=== PATIENT | male | born 1940 | race Caucasian/White ===

== ENCOUNTER 2017-06-09 07:57 | Day surgery (SDC) | payer MEDICARE, OTHER ==
--- NOTE | 2017-06-02 14:38 | HP ---
AMENDED REPORT NOW INCLUDES COSIGNER DESIGNATION - ESIGNED BEFORE ADJUSTMENT PREOPERATIVE HISTORY AND PHYSICAL: DATE OF SURGERY/ADMISSION: 06/09/17 DATE OF OFFICE VISIT: 05/29/17 ATTENDING PHYSICIAN: Dr. Jessica Ruelas.* (DICTATED BY TOMAS SUTTON) PROCEDURE: Right wrist carpal tunnel release. CHIEF COMPLAINT: Bilateral hand numbness and tingling. HISTORY OF PRESENT ILLNESS: Pankaj is a 77-year-old male, who complains of numbness and tingling in bilateral hands, much worse on the right than the left. He has had trouble for 8 months. He says that he has very significant numbness in the right hand that bothers him a lot at night. He feels a lot of weakness in his hand. It bothers him when he tries to drive or ride his trike. He rates the pain as 7/10. He has not had any treatment for this problem. He recently had a nerve conduction study, which showed bilateral carpal tunnel syndrome moderate in degree. He does not take any medication for the problem. He does have significant history for atrial fibrillation for which he uses Pradaxa. He has failed conservative treatments. He has elected to proceed with surgery and the plan is for a right wrist carpal tunnel release by Dr. Ruelas. PAST MEDICAL HISTORY: 1. Hypertension. 2. Atrial fibrillation. 3. Pacemaker. 4. Diabetes type 2. PAST SURGICAL HISTORY: Prostate in 1999 and hernia repair. FAMILY HISTORY: Diabetes, heart disease, hypertension, stroke. SOCIAL HISTORY: He lives with his spouse. 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 He denies tobacco, alcohol or recreational drug use. REVIEW OF SYSTEMS: A complete 14-point review of systems was obtained, other than HPI was positive for hearing changes, chronic neck and back pain, previous fracture, weakness. All other systems are negative and noncontributory. PHYSICAL EXAMINATION GENERAL: Well-developed, well-nourished 77-year-old male in no acute distress. Alert and oriented x3. Appropriate mood and affect. VITAL SIGNS: Pulse is 68, blood pressure is 134/70, respirations 12, pain level is 2/10. HEENT: Head is normocephalic, atraumatic. NECK: Supple with no palpable lymph nodes. LUNGS: Clear to auscultation bilaterally. No wheezes, rales, or rhonchi. CARDIAC: Regular rate and rhythm. S1, S2. No murmurs, rubs, or gallops. MUSCULOSKELETAL: Right upper extremity, he has marked thenar wasting on the right. There is no soft tissue swelling or bruising. He has marked weakness in the thumb with abduction on the right, but not on the left. He can make a fist okay, but he has a lot of arthritic changes in the fingers. He cannot squeeze a tight fist. He has good strength with finger flexion. He has negative Tinel' s at the median nerves bilaterally. IMPRESSION: Right carpal tunnel syndrome. PLAN: He is scheduled to undergo right wrist carpal tunnel release with Dr. Ruelas on 06/09/17. A prescription for tramadol will be sent to the patient's pharmacy for postoperative pain management. He will follow up in the office 10 to 14 days postoperatively. TOMAS SUTTON [id number]/[facility] #: [id number] MARTHA
[~2017-06-09 07:57] MED LIST: Buffered Lidocaine 0.9% SYRIN* 5 ML/SYR SYRINGE INTRADERM ONE
[2017-06-09] MEDS ORDERED: Propofol* 10 MG/ML 20 ML BTL IV PUSH ONE (09:17)
[2017-06-09] MEDS ORDERED: Lidocaine 2% PF * 5 ML VIAL ONE (09:17)
[2017-06-09] MEDS ORDERED: Naloxone* 0.4 MG/ML 1 ML VIAL IV PRN (09:33)
[2017-06-09 10:06] VITALS: BP 152/84
--- NOTE | 2017-06-10 02:36 | OP ---
DATE OF OPERATION: 06/09/17 [facility] DATE OF : 36 SURGEON: Jessica Ruelas MD ASSOCIATE MATERIAL HANDLER: TOMAS Nguyen ANESTHESIA: Local MAC. PRE-OP DIAGNOSIS: Right carpal tunnel syndrome. POST-OP DIAGNOSIS: Right carpal tunnel syndrome. OPERATIVE PROCEDURE: Right carpal tunnel release. ESTIMATED BLOOD LOSS: Zero. TOURNIQUET TIME: About 5 minutes. INDICATIONS FOR PROCEDURE: Pankaj is a 77-year-old male with numbness and tingling in the median nerve distribution of his right hand. He presents for right carpal tunnel release. DESCRIPTION OF PROCEDURE: The patient was brought to the operating room, was given a sedation anesthetic and a local infiltration of 10 cc of 1% plain lidocaine in the palm of his right hand. The skin of his right hand and forearm was prepped and draped in the usual sterile fashion. The hand and forearm were exsanguinated and the tourniquet elevated to 250 mmHg. A longitudinal incision was made in the palm in line with the ring finger. We dissected through the subcutaneous tissue sharply with a knife down to the transverse carpal ligament. The ligament was divided sharply with a knife and then more proximally with the scissors. The nerve was dissected free from the surrounding tissue and there was an area of moderate compression at the mid portion of the ligament. The wound was irrigated and the skin edges were reapproximated with 4-0 nylon suture. The wound was dressed with Xeroform, 4x4 , Webril and an Ronny wrap. The patient tolerated the procedure well and was brought to the recovery room in good condition. [id number]/[facility] #: [id number] [facility]
== END 2017-06-09 10:26 | disposition home or self-care (01) ==
LOC: OREAST 07:57
PROVIDERS: ATTEND Orthopaedic Surgery
DX: G56.01 Carpal tunnel syndrome, right upper limb (principal); E11.9 Type 2 diabetes mellitus without complications; I25.10 Atherosclerotic heart disease of native coronary artery without angina pectoris; I10 Essential (primary) hypertension; I48.91 Unspecified atrial fibrillation; M19.90 Unspecified osteoarthritis, unspecified site; Z79.01 Long term (current) use of anticoagulants; Z85.46 Personal history of malignant neoplasm of prostate
CPT/HCPCS: J2704

== ENCOUNTER 2017-10-17 07:16 | Inpatient (IN) | payer MEDICARE, OTHER ==
--- NOTE | 2017-09-29 10:31 | HP ---
HISTORY AND PHYSICAL: DATE OF ADMISSION: 10/17/17 Coming into [facility] 10/17/17 for right total knee replacement. CHIEF COMPLAINT: Right knee region pain. HISTORY OF PRESENT ILLNESS: The patient has been bothered with his right knee pain over the past months and he has failed nonoperative caring including a cortisone injection. He has noted an increasing valgus deformity of the knee, and knee replacement has been recommended. The patient has a pacemaker. He has atrial fibrillation. He is on Pradaxa. PAST MEDICAL HISTORY: Includes hypertension, diabetes, carpal tunnel syndrome, pacemaker. MEDICATIONS: Other meds include: 1. Toprol 50 mg each day. 2. Amiodarone 200 mg each day. 3. Valsartan/hydrochlorothiazide 160/12.5 mg one a day. 4. Glimepiride 2 mg one-half tablet each day. 5. Omeprazole 40 mg each day. 6. Pradaxa 150 mg p.o. twice a day. 7. Amlodipine 2.5 mg each day. 8. Tylenol. 9. Thyroid replacement 50 mcg each day. ALLERGIES: Allergic to PENICILLIN and COUMADIN. FAMILY HISTORY: Positive for diabetes, cardiac, hypertension and stroke. SOCIAL HISTORY: Lives with his significant other. 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 No smoking. No drinking. 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 Enjoys walking and cycling. He is right-handed. REVIEW OF SYSTEMS: He has not had heart attack. He is not troubled with chest pain. No bleeding disorders. The patient had prostate surgery with Dr. Joyner in 1999 for cancer. He has had some urinary tendency to lose urine since that time and he has had bilateral cataract surgery. PHYSICAL EXAMINATION Current examination, he is well nourished, well developed, slight limp on the right. The right knee has slight valgus malalignment. The cranial nerves are grossly intact. The height 63 inches, weight 136 pounds, blood pressure 128/78 , temp 97.1. The heart is regular with some irregularity and the lungs are clear bilaterally. The abdomen is soft, nontender. There is no organomegaly. The right dorsalis pedis pulse is 2+. The right knee extension minus 5 degrees , flexion 125. There is no effusion. Stable MCL and LCL. Nontender anteriorly , medially, and posteriorly. Some tenderness laterally . The thigh and calf are soft. No swelling bilaterally in his legs, ankles and feet. DIAGNOSTIC STUDIES: The knee radiographs show severe arthritis in the lateral compartment with [id number]. IMPRESSION: Severe arthritis of the right knee in lateral compartment with some valgus malalignment. PLAN: Right total knee replacement. Risks and complications have been reviewed with him and his questions were answered. [id number]/[facility] #: [id number] MTDD
[~2017-10-17 07:16] MED LIST changes: +Acetaminophen TAB* 325 MG PO ONE; +Tranexamic Acid 1,000 MG in NS 0.9% 50 ML* (outpatient use) IV SCH
--- OUTSIDE RECORDS SUMMARY | 2017-10-17 07:21 | XMS REPORT ---
:1940 External Reference #:[id number] Author Organization [facility] Address [address] [place] [address] Phone [phone] Care Team Providers Name Role Phone Gustavo Brownlee MD Primary Care Physician Unavailable Payers Type Date Identification Numbers Payment Provider Subscriber Medicare Primary Policy Number: [id number] Medicare Pankaj Castaneda PayID: [id number] [address] [place] [address] Medigap Part B Expires: 2017 Policy Number: [id number] Medicare Pankaj Castaneda PayID: [id number] [address] [place] [address] Commercial Policy Number: [id number] Lifetime Benefit Solution Pankaj Castaneda Group Number: [id number] [address] [address] [facility]ID[facility] [address] Problems Date Description Provider Status Onset: 02/10/2015 Sinus node dysfunction Brandon Cooper M.D., Active PERRI WHITMORE Onset: 02/10/2015 Paroxysmal atrial fibrillation Brandon Cooper M.D., Active MYRANDA, PERRI Onset: 04/06/2015 Cardiac pacemaker in situ Brandon Cooper M.D., Active MYRANDA, PERRI Onset: 05/24/2017 Bilateral carpal tunnel syndrome Ruben Araujo MD Active Onset: 05/24/2017 Cervical disc disorder Ruben Araujo MD Active Onset: 05/24/2017 Abnormal involuntary movement Ruben Araujo MD Active Onset: 05/24/2017 Diabetic peripheral neuropathy Ruben Araujo MD Active associated with type 2 diabetes mellitus Onset: 06/02/2017 Essential hypertension Brandon Cooper M.D., Active PERRI WHITMORE Onset: 06/02/2017 Thoracic aortic ectasia rBandon Cooper M.D., Active PERRI WHITMORE Onset: 07/27/2017 Carpal tunnel syndrome of left Ruben Araujo MD Active wrist Onset: 07/27/2017 Carpal tunnel syndrome of right Ruben Araujo MD Active wrist Family History Date Family Member(s) Problem(s) Comments General Hypertension Mother had HTN as well as 1 sister and 1 brother General Diabetes Sister and Brother w/ Diabetes General Cerebrovascular Accident (CVA) Father Emphysema Mother Stroke Social History Type Date Description Comments Lives With 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 Cigarette Use Never Smoked Cigarettes ETOH Use Denies alcohol use Smoking Patient has never smoked Recreational Drug Use Denies Drug Use Daily Caffeine Consumes on average 4 cups of regular coffee per day Exercise Type/Frequency Exercises regularly Rides Bicycle, uses stair stepper Allergies, Adverse Reactions, Alerts Date Description Reaction Status Severity Comments 02/03/2015 Penicillins Urticaria active 09/07/2016 Warfarin active urologic and opthalmalogic bleeding Medications Medication Date Status Form Strength Qnty SIG Indications Ordering Provider Toprol XL Active Tablets 50mg 90tab 1 by mouth Z95.0 Brandon ER 24HR s every day eBbe Cooper, PERRI WHITMORE Amiodarone HCL Active Tablets 200mg 90tab 1 by mouth Brandon s every day Bebe Cooper, PERRI WHITMORE Valsartan-Fitzhugh Active Tablets 160-12.5m 1 by mouth Unknown chlorothiazide / g every day Glimepiride Active Tablets 2mg 1/2 by mouth Unknown once daily Omeprazole Active Capsules 40mg [address] every day Pradaxa Active Capsules 150mg 1 by mouth Unknown twice a day Metoprolol Active Tablets 50mg 1 by mouth Unknown Succinate ER /0000 ER 24HR every day Amlodipine Active Tablets 2.5mg 1 by mouth Unknown Besylate every day Acetaminophen Active Tablets 500mg 2 tabs 3x a day as needed Levothyroxine Active Tablets 50mcg 1 by mouth Unknown Sodium /0000 every day Ultracet 06/09 Hx Tablets 37.5-325m 15tab 1 tab by Jessica g s mouth every Ruelas, - 4-6 hours as M.D. 07/16 needed pain Amlodipine 08/16 Hx Tablets 2.5mg 1 by mouth Brandonssuannah Hope Besylate every day Brandon Cooper M.D., 05/28 FAC, FASNC Nexium Hx Capsules 40mg 1 by mouth Unknown /0000 DR every day - 02/07 Aspirin Low Hx Chewtabs 81mg 1 by mouth Unknown Strength /0000 every day - 04/22 Amlodipine Hx Tablets 5mg 1/2 tab by Unknown Besylate /0000 mouth every - day 08/17 Coumadin 00 Hx Tablets 5mg use as Unknown /0000 directed - 02/07 Atenolol Hx Powder 25mg 1/2 tab every Unknown /0000 day - Coumadin Hx Tablets 2mg 1-3 tab by Unknown /0000 mouth as - directed at 02/07 5pm daily /2015 Esomeprazole Hx Capsules 40mg 1 by mouth Unknown Magnesium /0000 DR every other - day 04/05 Famotidine Hx Tablets 20mg take one Unknown /0000 tablet by - mouth every 04/05 other /2015 alternating w/ Esomeprazole Medications Administered in Office Medication Date Status Form Strength Qnty SIG Indications Ordering Provider Depomedrol Administered Injection Dirk Nichol, 40MG 018 M.D. Inj, Administered Injection Brandon Hope Regadenoson, 017 Kenneth, 0.1 MG M.DCassandra, [facility], FASNC Technetium TC Administered Injection Brandon Hope 99M 017 Kenneth TetrofosminBebe, [facility], Per Unit Dose FASALEXX Up To 40 Millicuries Vital Signs Date Vital Result Comment 10/03/2017 Height 64 inches 5'4" Weight 134.25 lb with shoes Heart Rate 62 /min BP Systolic Sitting 112 mmHg Lue reg cuff BP Diastolic Sitting 60 mmHg Lue reg cuff BP Systolic Standing 120 mmHg Lue reg cuff BP Diastolic Standing 78 mmHg Lue reg cuff Respiratory Rate 16 /min BMI (Body Mass Index) 23.0 kg/m2 Ejection Fraction 55-60% date 08/19/16 ECHO 09/27/2017 Height 63.25 inches 5'3.25" Weight 136.00 lb BP Systolic 128 mmHg BP Diastolic 78 mmHg Respiratory Rate 20 /min Body Temperature 97.1 F Pain Level 6 BMI (Body Mass Index) 23.9 kg/m2 08/23/2017 Height 63.25 inches 5'3.25" Weight 137.00 lb BP Systolic 134 mmHg BP Diastolic 64 mmHg Respiratory Rate 20 /min Body Temperature 97.7 F Pain Level 8 BMI (Body Mass Index) 24.1 kg/m2 08/21/2017 Height 63.25 inches 5'3.25" Weight 137.00 lb BP Systolic 126 mmHg BP Diastolic 68 mmHg Respiratory Rate 20 /min Body Temperature 98.4 F Pain Level 8 BMI (Body Mass Index) 24.1 kg/m2 07/27/2017 Height 63.25 inches 5'3.25" Weight 137.00 lb Heart Rate 68 /min BP Systolic 118 mmHg BP Diastolic 78 mmHg BMI (Body Mass Index) 24.1 kg/m2 07/17/2017 Height 63.25 inches 5'3.25" Weight 126.00 lb Heart Rate 64 /min Respiratory Rate 16 /min Pain Level 1 BMI (Body Mass Index) 22.1 kg/m2 06/19/2017 Height 67 inches 5'7" Heart Rate 68 /min BP Systolic 110 mmHg BP Diastolic 68 mmHg Respiratory Rate 16 /min Body Temperature 98.0 F Pain Level 3 06/02/2017 Height 63.25 inches 5'3.25" Weight 134.00 lb Heart Rate 64 /min regular BP Systolic Sitting 120 mmHg LA Large Cuff BP Diastolic Sitting 68 mmHg LA Large Cuff BP Systolic Standing 114 mmHg LA Large Cuff BP Diastolic Standing 64 mmHg LA Large Cuff Respiratory Rate 16 /min Pain Level 5 right knee O2 % BldC Oximetry 94 % BMI (Body Mass Index) 23.5 kg/m2 05/29/2017 Height 63.25 inches 5'3.25" Weight 134.00 lb Heart Rate 68 /min BP Systolic 134 mmHg BP Diastolic 70 mmHg Respiratory Rate 12 /min Body Temperature 97.9 F Pain Level 2 BMI (Body Mass Index) 23.5 kg/m2 05/24/2017 Height 63.25 inches 5'3.25" Weight 132.38 lb Heart Rate 78 /min BP Systolic Sitting 120 mmHg BP Diastolic Sitting 78 mmHg BMI (Body Mass Index) 23.3 kg/m2 09/07/2016 Height 63.25 inches 5'3.25" Weight 134.00 lb with shoes Heart Rate 76 /min BP Systolic Sitting 114 mmHg Rue reg cuff BP Diastolic Sitting 76 mmHg Rue reg cuff BP Systolic Standing 116 mmHg Rue reg cuff BP Diastolic Standing 76 mmHg Rue reg cuff Respiratory Rate 16 /min BMI (Body Mass Index) 23.5 kg/m2 Ejection Fraction 55-60% 08/19/2016-echo 06/08/2016 Height 63.25 inches 5'3.25" Weight 141.00 lb no shoes Heart Rate 68 /min BP Systolic Sitting 144 mmHg Rue reg cuff BP Diastolic Sitting 76 mmHg Rue reg cuff BP Systolic Standing 144 mmHg Rue reg cuff BP Diastolic Standing 80 mmHg Rue reg cuff Respiratory Rate 16 /min BMI (Body Mass Index) 24.8 kg/m2 06/22/2015 Height 63.25 inches 5'3.25" Weight 147.94 lb Heart Rate 35 /min BP Systolic Sitting 142 mmHg Ra reg cuff BP Diastolic Sitting 70 mmHg Ra reg cuff BP Systolic Standing 138 mmHg Ra reg cuff BP Diastolic Standing 78 mmHg Ra reg cuff Respiratory Rate 16 /min BMI (Body Mass Index) 26.0 kg/m2 05/27/2015 Height 63.25 inches 5'3.25" Weight 147.00 lb with shoes Heart Rate 58 /min BP Systolic 142 mmHg Home BP unit BP Diastolic 87 mmHg Home BP unit BP Systolic Sitting 136 mmHg Ra reg cuff BP Diastolic Sitting 84 mmHg Ra reg cuff BP Systolic Standing 142 mmHg Ra reg cuff BP Diastolic Standing 80 mmHg Ra reg cuff BMI (Body Mass Index) 25.8 kg/m2 04/06/2015 Height 63.25 inches 5'3.25" Weight 147.50 lb with out shoes Heart Rate 84 /min BP Systolic 148 mmHg Ra reg cuff BP Diastolic 84 mmHg Ra reg cuff BP Systolic Standing 142 mmHg Ra reg cuff BP Diastolic Standing 88 mmHg Ra reg cuff Respiratory Rate 16 /min BMI (Body Mass Index) 25.9 kg/m2 03/03/2015 Height 63.25 inches 5'3.25" Weight 146.00 lb Heart Rate 70 /min BP Systolic Sitting 150 mmHg left arm, reg cuff BP Diastolic Sitting 88 mmHg left arm, reg cuff BP Systolic Standing 148 mmHg left arm, reg cuff BP Diastolic Standing 88 mmHg left arm, reg cuff Respiratory Rate 20 /min BMI (Body Mass Index) 25.7 kg/m2 02/17/2015 Height 63.25 inches 5'3.25" Weight 145.00 lb Heart Rate 46 /min BP Systolic Sitting 134 mmHg left arm, reg cuff BP Diastolic Sitting 82 mmHg left arm, reg cuff BP Systolic Standing 134 mmHg left arm, reg cuff BP Diastolic Standing 82 mmHg left arm, reg cuff BMI (Body Mass Index) 25.5 kg/m2 02/10/2015 Height 63.25 inches 5'3.25" Weight 146.00 lb w/o shoes Heart Rate 50 /min reg BP Systolic 156 mmHg Lue. reg cuff BP Diastolic 94 mmHg Lue. reg cuff BP Systolic Sitting 156 mmHg Rue, reg cuff BP Diastolic Sitting 90 mmHg Rue, reg cuff BP Systolic Standing 160 mmHg Rue BP Diastolic Standing 86 mmHg Rue Respiratory Rate 18 /min BMI (Body Mass Index) 25.7 kg/m2 Results Test Date Test Result H/L Range Note Laboratory test finding 06/09/2017 Point of Care Glucose 150 mg/dL High 70 -100 1 Vitamin B12 And Folate 05/24/2017 Vitamin B12 542 pg/mL 180-914 2 Serum Folic Acid (Folate) 12.37 ng/mL >3.99 3 Laboratory test finding 05/24/2017 TSH (Thyroid Stim Horm) 3.14 mcIU/mL 0.34-5.60 4 Pre Cath Panel 02/17/2015 Partial Thrombo Time 29.2 seconds 26.0-36.3 5 PTT CBC Auto Diff 02/17/2015 White Blood Count 5.5 10^3/uL 3.5-10.8 Red Blood Count 4.80 10^6/uL 4.0-5.4 Hemoglobin 14.5 g/dL 14.0-18.0 Hematocrit 45 % 42-52 Mean Corpuscular Volume 94 fL 80-94 Mean Corpuscular Hemoglobin 30 pg 27-31 Mean Corpuscular HGB Conc 32 g/dL 31-36 Red Cell Distribution Width 14 % 10.5-15 Platelet Count 248 10^3/uL 150-450 Mean Platelet Volume 10 um3 7.4-10.4 Abs Neutrophils 4.0 10^3/uL 1.5-7.7 Abs Lymphocytes 0.5 10^3/uL Low 1.0-4.8 Abs Monocytes 0.5 10^3/uL 0-0.8 Abs Eosinophils 0.3 10^3/uL 0-0.6 Abs Basophils 0.2 10^3/uL 0-0.2 Abs Nucleated RBC 0.01 10^3/uL Granulocyte % 73.6 % 38-83 Lymphocyte % 8.9 % Low 25-47 Monocyte % 9.2 % High 1-9 Eosinophil % 5.1 % 0-6 Basophil % 3.2 % High 0-2 Nucleated Red Blood Cells % 0.2 Inr/Protime 02/17/2015 Inr 0.97 0.89-1.11 Basic Metabolic Panel 02/17/2015 Sodium 139 mmol/L 133-145 Potassium 4.2 mmol/L 3.5-5.0 Chloride 103 mmol/L 101-111 Co2 Carbon Dioxide 29 mmol/L 22-32 Anion Gap 7 mmol/L 2-11 Glucose 90 mg/dL 70-100 Blood Urea Nitrogen 19 mg/dL 6-24 Creatinine 1.09 mg/dL 0.67-1.17 BUN/Creatinine Ratio 17.4 8-20 Calcium 10.2 mg/dL 8.6-10.3 Egfr Non- 65.6 >60 Egfr 84.4 >60 6 1 Stage Manager: [id number] Normal Range 180 to 914 Indeterminate Range 145 to 180 Deficient Range <145 3 Copy Result to: GUSTAVO BROWNLEE ([id number]) 4 Copy Result to: GUSTAVO BROWNLEE ([id number]) 5 soon 6 Because ethnic data is not always readily available, this report includes an eGFR for both -Americans and non- Americans. The National Kidney Disease Education Program (NKDEP) does not endorse the use of the MDRD equation for patients that are not between the ages of 18 and 70, are , have extremes of body size, muscle mass, or nutritional status, or are non- or non-. According to the National Kidney Foundation, irrespective of diagnosis, the stage of the disease is based on the level of kidney function: Stage Description GFR(mL/min/1.73 m(2)) 1 Kidney damage with normal or decreased GFR 90 2 Kidney damage with mild decrease in GFR 60-89 3 Moderate decrease in GFR 30-59 4 Severe decrease in GFR 15-29 5 Kidney failure <15 (or dialysis) Procedures Date CPT Code Description Status Comment 10/03/2017 71811 EKG Tracing & Interpretation Completed 08/25/2017 40729 Pace Maker Eval W/Iterative Completed Adjment Dual Lead 08/25/2017 91295 Pace Maker Eval W/Iterative Completed Adjment Dual Lead 08/21/2017 40402 Inject/Drain Joint/Bursa Major Completed W/O US 06/09/2017 77116 Carpal Tunnel Release Completed 06/09/2017 54668 Carpal Tunnel Release Completed 06/02/2017 89393 EKG Tracing & Interpretation Completed 03/28/2017 34793 Nerve Conduction 09-10 Studies Completed 03/28/2017 12576 Needle Electromyography Completed Complete, Five Or More Muscles Studied 02/15/2017 50827 Pace Maker Eval W/Iterative Completed Adjment Dual Lead 02/15/2017 67897 Pace Maker Eval W/Iterative Completed Adjment Dual Lead 09/07/2016 42804 EKG Tracing & Interpretation Completed 08/23/2016 70647 Pace Maker Eval W/Iterative Completed Adjment Dual Lead 08/23/2016 08930 Pace Maker Eval W/Iterative Completed Adjment Dual Lead 08/19/2016 12287 ECHO Transthoracic, Real-Time 2D Completed With Doppler And Color Flow 08/17/2016 91991 Stress Test Completed 08/17/2016 92251 Myocardial Perfusion Imaging Completed Tomographic (Spect) Multiple Studies 06/08/2016 97864 EKG Tracing & Interpretation Completed 05/02/2016 Diabetic Retinal Eye Exam Completed Document: 05/02/16 - Consult Ophthalmology-[place] 03/21/2016 30566 Pace Maker Eval W/Iterative Completed Adjment Dual Lead 09/16/2015 06441 Pace Maker Eval W/Iterative Completed Adjment Dual Lead 06/10/2015 58204 Interrogation Device Eval In Completed Person W/DR Analysis,Single,Dual,Mul 04/23/2015 Diabetic Retinal Eye Exam Completed Document: 04/23/15 - Cons Ophthalmology-[place] Document: 04/23/15 - Cons Ophthalmology-[place] 04/06/2015 14322 EKG Tracing & Interpretation Completed 03/24/2015 35551 Pace Maker Eval W/Iterative Completed Adjment Dual Lead 02/25/2015 19786 EKG, Interpretation Only Completed 02/24/2015 82886 EKG, Interpretation Only Completed 02/24/2015 68759 Perm Pacemaker Av Sequential Completed Atrial And Ventricular 02/10/2015 15037 EKG Tracing & Interpretation Completed Encounters Type Date Location Provider CPT E/M Dx Office Visit 08/23/2017 [facility] M.D. 84216 M17.11 3:15p C.M.ACassandra Office Visit 08/21/2017 [facility] M.D. 49125 M17.11 11:00a C.M.A. Office Visit 07/27/2017 [facility] [address] G56.02 3:30p G56.01 E11.42 R25.1 Office Visit 06/02/2017 10:30a [facility] Cooper, 68605 I48.0 Kaitlyn Elderland Bebe, FACC, FASIL I10 I77.810 Z95.0 Z01.810 G56.01 Office Visit 05/29/2017 9:30a [facility] Jessica Ruelas, 11534 G56.01 C.MRuss Spence Office Visit 05/24/2017 11:15a [facility] [address] G56.03 E11.42 M50.90 R25.1 Office Visit 09/07/2016 1:45p [facility] Brandonsusannah Cooper, 19639 I48.0 Printer Slotter Helper Bebe, FACC, FASNC I49.5 Z95.0 Office Visit 06/08/2016 11:00a [facility] Brandon Cooper, 88800 I49.5 Printer Slotter Helper Bebe, FACC, FASNC I48.0 Office Visit 06/22/2015 10:00a [facility] Brandon Cooper, 53062 I49.5 Printer Slotter Helper Bebe, FACC, FASNC Office Visit 05/27/2015 11:00a [facility] Brandon Cooper, 11118 I48.0 Printer Slotter Helper Bebe, FACC, FASNC Office Visit 04/06/2015 10:30a [facility] Brandon Cooper, 11217 I48.0 Printer Slotter Helper Bebe, FACC, FASNC Z95.0 Office Visit 02/17/2015 1:15p [facility] Todd Paredes, 14015 I49.5 [facility] [place]be I48.0 Office Visit 02/10/2015 2:00p [facility] Brandon oCoper, 81673 I49.5 [facility] Bebe, [facility], FASNC I48.0 Plan of Care Future Appointment(s):10/17/2017 9:15 am - TOMAS Rodas at [facility]A.11/15/2017 8:15 am - Santiago Gandara M.D. at [facility].A.10/17/2017 9:15 am - Santiago Gandara M.D. at [facility].A.10/03/2017 - Brandon Cooper M.D., [facility], [id number] Paroxysmal atrial fibrillationComments:As discussed, I feel you may have needed right knee replacement as scheduled with Dr. Gandara 10/17/17.Please stop Pradaxa after your evening dose of Pradaxa on 10/14/17.Follow up:as prior ordered, echo 05/25 with ov post
--- OUTSIDE RECORDS SUMMARY | 2017-10-17 07:21 | XMS REPORT ---
:1940 External Reference #:[id number] Author Organization [facility] Address [address] [place] [address] Phone [phone] Care Team Providers Name Role Phone Gustavo Brownlee MD Primary Care Physician Unavailable Payers Type Date Identification Numbers Payment Provider Subscriber Medicare Primary Policy Number: [id number] Medicare Pankaj Castaneda PayID: [id number] [address] [place] [address] Medigap Part B Expires: 2017 Policy Number: [id number] Medicare Pankaj Castaneda PayID: [id number] [address] [place] [address] Commercial Policy Number: [id number] Lifetime Benefit Solution Pankaj Castaneda Group Number: [id number] [address] [address] PayID: [id number] Villalpando [address] Problems Date Description Provider Status Onset: 02/10/2015 [...] PERRI WHITMORE Onset: 06/02/2017 Thoracic aortic ectasia Brandon Cooper M.D., Active PERRI WHITMORE Onset: 07/27/2017 [...] Description Comments 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 Cigarette Use Never Smoked Cigarettes ETOH Use [...] Z95.0 Brandon ER 24HR s every day Bebe Cooper, PERRI WHITMORE Amiodarone HCL Active Tablets 200mg 90tab 1 by mouth Brandon s every day Bebe Cooper, PERRI WHITMORE Valsartan-[place] Active Tablets 160-12.5m 1 by mouth Unknown [...] mouth every Ruelas, - 4-6 hours as M.DCassandra 07/16 needed pain Amlodipine 08/16 Hx Tablets 2.5mg 1 by mouth Brandonsusannah Hope Besylate every day Brandon Cooper M.D., 05/28 [facility], FASNC Nexium Hx Capsules 40mg 1 by [...] /0000 tablet by - mouth every 04/05 /2015 alternating w/ Esomeprazole Medications Administered in Office Medication Date Status Form Strength Qnty SIG Indications Ordering Provider Depomedrol Administered Injection Dirk Nichol, 40MG 018 M.D. 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: [id number] Normal Range 180 to 914 Indeterminate Range 145 to 180 Deficient Range <145 3 Copy Result to: GUSTAVO BROWNLEE ([id number]) 4 Copy Result to: GUSTAVO BROWNLEE ([id number]) 5 soon 6 Because ethnic data is [...] Procedures Date CPT Code Description Status Comment 08/25/2017 77212 Pace Maker Eval W/Iterative Completed Adjment Dual Lead 08/25/2017 88195 Pace Maker Eval W/Iterative Completed Adjment Dual Lead 08/21/2017 12361 Inject/Drain Joint/Bursa Major Completed W/O US 06/09/2017 26261 Carpal Tunnel Release Completed 06/09/2017 56801 Carpal Tunnel Release Completed 06/02/2017 21928 EKG Tracing & Interpretation Completed 03/28/2017 78955 Nerve Conduction 09-10 Studies Completed 03/28/2017 32356 Needle Electromyography Completed Complete, Five Or More Muscles Studied 02/15/2017 72975 Pace Maker Eval W/Iterative Completed Adjment Dual Lead 02/15/2017 49168 Pace Maker Eval W/Iterative Completed Adjment Dual Lead 09/07/2016 14147 EKG Tracing & Interpretation Completed 08/23/2016 57478 Pace Maker Eval W/Iterative Completed Adjment Dual Lead 08/23/2016 56539 Pace Maker Eval W/Iterative Completed Adjment Dual Lead 08/19/2016 94495 ECHO Transthoracic, Real-Time 2D Completed With Doppler And Color Flow 08/17/2016 50077 Myocardial Perfusion Imaging Completed Tomographic (Spect) Multiple Studies 08/17/2016 33047 Stress Test Completed 06/08/2016 01085 EKG Tracing & Interpretation Completed 05/02/2016 Diabetic Retinal Eye Exam Completed Document: 05/02/16 - Consult Ophthalmology-[place] 03/21/2016 33079 Pace Maker Eval W/Iterative Completed Adjment Dual Lead 09/16/2015 66533 Pace Maker Eval W/Iterative Completed Adjment Dual Lead 06/10/2015 37523 Interrogation Device Eval In Completed Person W/DR Analysis,Single,Dual,Mul 04/23/2015 Diabetic Retinal Eye Exam Completed Document: 04/23/15 - Cons Ophthalmology-[place] Document: 04/23/15 - Cons Ophthalmology-[place] 04/06/2015 30874 EKG Tracing & Interpretation Completed 03/24/2015 85607 Pace Maker Eval W/Iterative Completed Adjment Dual Lead 02/25/2015 33190 EKG, Interpretation Only Completed 02/24/2015 19728 EKG, Interpretation Only Completed 02/24/2015 25609 Perm Pacemaker Av Sequential Completed Atrial And Ventricular 02/10/2015 58282 EKG Tracing & Interpretation Completed Encounters Type Date Location Provider CPT E/M Dx Office Visit 08/23/2017 [facility] M.D. 76482 M17.11 3:15p C.M.A. Office Visit 08/21/2017 [facility] M.D. 60671 M17.11 11:00a C.M.A. Office Visit 07/27/2017 [place] [address] G56.02 3:30p G56.01 E11.42 R25.1 Office Visit 06/02/2017 10:30a [facility] Brandon Cooper, 40324 I48.0 Emergency Veterinary Technician NITHYA Stanley Bebe, FACC, FASNC I10 I77.810 Z95.0 Z01.810 G56.01 Office Visit 05/29/2017 9:30a [facility] Jessica Ruelas, 53476 G56.01 C.M.ACassandra Spence Office Visit 05/24/2017 11:15a [place] [address] G56.03 E11.42 M50.90 R25.1 Office Visit 09/07/2016 1:45p [facility] Brandon Cooper, 64207 I48.0 Emergency Veterinary Technician M.D., FACC, FASNC I49.5 Z95.0 Office Visit 06/08/2016 11:00a [facility] Brandon Cooper, 40538 I49.5 Emergency Veterinary Technician M.D., FACC, FASNC I48.0 Office Visit 06/22/2015 10:00a [facility] Brandon Hope Cooper, 98058 I49.5 Emergency Veterinary Technician M.D., FACC, FASNC Office Visit 05/27/2015 11:00a [facility] Brandon Cooper, 78976 I48.0 Emergency Veterinary Technician M.D., FACC, FASNC Office Visit 04/06/2015 10:30a [facility] Brandon Cooper, 89483 I48.0 Emergency Veterinary Technician M.D., FACC, FASNC Z95.0 Office Visit 02/17/2015 1:15p [facility] Todd Paredes, 45376 I49.5 Emergency Veterinary Technician [facility] M[place] I48.0 Office Visit 02/10/2015 2:00p [facility] Hope Cooper, 23192 I49.5 Emergency Veterinary Technician M.DCassandra, FACC, FASNC I48.0 Plan of Care Future Appointment(s):11/15/2017 8:15 am - Santiago Gandara M.D. at [facility]10/03/2017 1:15 pm - Branodn Cooper M.D., [facility], [facility] at [facility]10/17/2017 9:15 am - Santiago Gandara M.D. at [facility] .[facility]11/17/2017 7:30 am - Jessica Ruelas M.D. at [facility]11/27/2017 9:00 am - Jessica Ruelas M.D. at [facility]10/30/2017 8:45 am - Jessica Ruelas M.D. at [facility]09/27/2017 - Santiago Gandara M.D.M17.11 Unilateral primary osteoarthritis, right kneeFollow up:Follow up: Right total knee 10/17 Stay active Stop the Pradaxa on the day recommended by Dr. Cooper
[2017-10-17] MEDS ORDERED: Acetaminophen TAB* 325 MG ONE (07:38)
[2017-10-17] MEDS ORDERED: Clindamycin 900 MG/D5W BAG(*) 900 MG/50 ML BAG IVPB ONE (07:38)
[2017-10-17] MEDS ORDERED: Midazolam* 1 MG/ML 2 ML VIAL (2 MG) ONE (08:45)
[2017-10-17] MEDS ORDERED: fentaNYL* 50 MCG/ML 2 ML VIAL (100 MCG VIAL) ONE ×3 (08:45→13:01)
[2017-10-17] MEDS ORDERED: Rocuronium* 10 MG/ML VIAL ONE (09:48)
[2017-10-17] MEDS ORDERED: EPHEDrine (Pressors)* 50 MG/ML VIAL ONE (10:00)
[2017-10-17] MEDS ORDERED: Lidocaine 2% PF * 5 ML VIAL ONE (10:05)
[2017-10-17] MEDS ORDERED: ROPIVACAINE 5 MG/ML 30 ML BTL (0.5%) ONE (10:05)
[2017-10-17] MEDS ORDERED: Dexamethasone IV* 4 MG/ML 1 ML (4 MG) ONE (10:06)
[2017-10-17] MEDS ORDERED: Propofol* 10 MG/ML 20 ML BTL IV PUSH ONE (10:06)
[2017-10-17] MEDS ORDERED: Famotidine IV* 10 MG/ML 2 ML (20 mg) ONE (10:06)
[2017-10-17] MEDS ORDERED: Bupivacaine 0.25% SDV PF* 10 ML VIAL INJ ONE (10:17)
[2017-10-17] MEDS ORDERED: PROCHLORPERAZINE INJ 5 MG/ML 2 ML VIAL IV PRN (10:23)
[2017-10-17] MEDS ORDERED: DiMENhydriNATE IV* 50 MG/ML VIAL IV PUSH PRN (10:23)
[2017-10-17] MEDS ORDERED: diPHENhydraMINE IV* 50 MG/ML 1 ml VIAL (BENADRYL) IV PRN ×2 (10:23→12:41)
[2017-10-17] MEDS ORDERED: HYDROmorphone INJ1* 1 MG/ML SYRINGE IV PRN (10:23)
[2017-10-17] MEDS ORDERED: Naloxone* 0.4 MG/ML 1 ML VIAL IV PRN (10:23)
[2017-10-17] MEDS ORDERED: fentaNYL* 50 MCG/ML 2 ML VIAL (100 MCG VIAL) IV PRN (10:23)
[2017-10-17] MEDS ORDERED: Bupivacaine 0.25% W/EPI* 10 ML SDV ONE (11:50)
[2017-10-17] MEDS ORDERED: Ketorolac INJ* 30 MG/ML 1 ML VIAL ONE (12:07)
[2017-10-17] MEDS ORDERED: Ondansetron ODT TAB* 4 MG PO PRN (12:41)
[2017-10-17] MEDS ORDERED: Magnesium Hydroxide LIQ* 30 ML UDC PO PRN (12:41)
[2017-10-17] MEDS ORDERED: Cyclobenzaprine TAB* 10 MG PO PRN (12:41)
[2017-10-17] MEDS ORDERED: Morphine VIAL* 4 MG/ML VIAL (1 ml vial) IV PRN (12:41)
[2017-10-17] MEDS ORDERED: Ondansetron INJ* 2 MG/ML VIAL IV PRN (12:41)
[2017-10-17] MEDS ORDERED: traMADol TAB* 50 MG PO PRN (12:41)
[2017-10-17] MEDS ORDERED: Morphine INJ* 2 MG/ML 1 ML SYRINGE (TWO MG - NEW SYRINGE VERSION) IV PRN (12:41)
[2017-10-17] MEDS ORDERED: diPHENhydraMINE PO* 25 MG PO PRN (12:41)
--- NOTE | 2017-10-17 13:14 | RAD ---
HISTORY: sp right total knee arthroplasty COMPARISONS: August 21, 2017 VIEWS: 2 , Frontal and lateral views of the right knee FINDINGS: BONE DENSITY: Normal. BONES: The patient is status post right knee arthroplasty. There is no hardware failure or osteolysis. JOINTS: The patient is status post right knee arthroplasty. ALIGNMENT: There is no dislocation. SOFT TISSUES: There is postsurgical change to the soft tissues. OTHER FINDINGS: None. IMPRESSION: STATUS POST RIGHT KNEE ARTHROPLASTY.
[2017-10-17] MEDS ORDERED: Dextrose 50% Syringe 50 ML* 25 GM/50 ML SYRINGE IV PUSH PRN (15:07)
[2017-10-17] MEDS: oxyCODONE TAB* 5 MG TAB PO PRN (15:53)
[2017-10-17] MEDS: Acetaminophen TAB* 325 MG PO SCH ×2 (15:54→21:01)
[2017-10-17] MEDS: Clindamycin 600 MG IVPREMIX(* 600 MG/50 ML SDV IV SCH (17:11)
[2017-10-17] MEDS: Insulin LISPRO* 1 UNITS UNIT SUBCUT SCH ×2 (17:52→21:02)
--- NOTE | 2017-10-17 20:28 | CONS ---
CC: Dr. Luis Hutchins * CONSULTATION REPORT: DATE OF CONSULT: REQUESTING PHYSICIAN: Dr. Santiago Gandara. PRIMARY CARE PROVIDER: Dr. Luis Hutchins. HISTORY OF PRESENT ILLNESS: Mr. Castaneda is a 77-year-old gentleman with a past medical history of type 2 diabetes, hypertension, hypothyroidism, atrial fibrillation, GERD, who presented to Dr. Gandara's office with complaints of right knee pain that did not respond to conservative measures and he was noted to have an increasing valgus deformity of the knee and knee replacement has been recommended. The patient underwent a right total knee arthroplasty with an EBL of 250 mL. During my evaluation, the patient states that he is feeling well. Denies any pain and states that he is happy that he is already able to move his leg. PAST MEDICAL HISTORY: 1. Hypertension. 2. Type 2 diabetes. 3. GERD. 4. Atrial fibrillation. 5. Status post pacemaker. 6. Hypothyroidism. 7. COPD. 8. GERD. 9. Carpal tunnel syndrome. MEDICATION LIST: 1. Acetaminophen 650 mg p.o. q.6 hours p.r.n. pain or fever. 2. Amiodarone 200 mg p.o. daily. 3. Amlodipine 2.5 mg p.o. daily. 4. Glimepiride 1 mg p.o. daily. 5. Levothyroxine 50 mcg p.o. daily. 6. Metoprolol succinate 50 mg p.o. daily. 7. Omeprazole 40 mg p.o. daily. 8. Pradaxa 150 mg p.o. b.i.d. 9. Valsartan/hydrochlorothiazide 160/12.5 one tablet p.o. q.a.m. ALLERGIES: To PENICILLIN, the patient had a rash and to WARFARIN. FAMILY HISTORY: Positive for diabetes, heart disease, hypertension, and CVA. SOCIAL HISTORY: The patient has COPD secondary to secondhand smoking, but he never smoked. No history of alcohol or drug use. 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 REVIEW OF SYSTEMS: A 14-point review of systems was performed and all the pertinent negative and positive findings are in the HPI. PHYSICAL EXAM: Vital Signs: Temperature 96.6, heart rate is 65, respiratory rate is 20, oxygen saturation 99% on room air, blood pressure is 144/75. General: The patient is a pleasant, elderly gentleman, sitting up in the bed, in no acute distress. HEENT: Pupils are equal. Moist mucous membranes. CVS: Normal S1, S2. Regular rate and rhythm. Chest: Breath sounds present bilaterally with no added sounds. Abdomen is soft. Bowel sounds present. Extremities: No edema. The patient has a Cryo unit to his right knee. Good capillary refill and normal sensation to both lower extremities. Neuro: He is alert and oriented x3. Able to move all 4 extremities. ASSESSMENT AND PLAN: Mr. Castaneda is a 77-year-old male with a past medical history of hypothyroidism; hypertension; type 2 diabetes; atrial fibrillation, status post pacemaker; chronic obstructive pulmonary disease; carpal tunnel, who presented for an elective right total knee replacement. 1. Right total knee replacement. Management as per Orthopedics. 2. Type 2 diabetes. At this point, we are going to hold his glimepiride. We are going to monitor his fingersticks and he will have a lispro sliding scale coverage. 3. Atrial fibrillation. The patient sounds regular on physical examination. An EKG done at Dr. Hutchins' office on 09/29/17 showed an A-paced rhythm. We are going to continue amiodarone and resume his Pradaxa as soon as he is cleared by Orthopedics, hopefully in the next 24 hours. 4. Hypertension. We will continue amlodipine, valsartan, and hydrochlorothiazide. 5. DVT prophylaxis will be with Pradaxa. 6. Code status is full. TIME SPENT: Approximately 45 minutes was spent with the patient's interview, medical records review, physical examination to complete this consultation, more than half of this time was spent [id number] with the patient and coordination of care. [id number]/[facility] #: [id number] MARTHA
[2017-10-17] MEDS: Docusate CAP* 100 MG PO SCH (21:02)
[2017-10-17] MEDS: Magnesium Hydroxide LIQ* 30 ML UDC PO SCH (21:03)
[2017-10-18] MEDS: Clindamycin 600 MG IVPREMIX(* 600 MG/50 ML SDV IV SCH ×2 (01:41→09:27)
--- NOTE | 2017-10-18 02:26 | OP ---
DATE OF OPERATION: 10/17/17 - ROOM #348 DATE OF : 36 SURGEON: Santiago Gandara MD STEAMSHIP AGENT: TOMAS Rodas, [employer] assistant manager. ANESTHESIOLOGIST: Dr. José Miguel Sharma. ANESTHESIA: Right thigh adductor canal block, ropivacaine, and endotracheal tube general. PRE-OP DIAGNOSIS: Severe arthritis to the right knee especially in the lateral compartment with valgus malalignment, [id number]. POST-OP DIAGNOSIS: Severe arthritis to the right knee especially in the lateral compartment with valgus malalignment, [id number]. OPERATIVE PROCEDURE: Right total knee replacement. COMPONENTS UTILIZED: Darleen Persona knee. All components cemented, a size 6 femur,a 32 patella, a size E tibia with an extension and a 10-mm articular surface. COMPLICATIONS: There were no complications. BLOOD LOSS: 200 mL. DRAINS: Two drains, right knee at the end of the case. REPLACEMENT: Crystalloid fluids. OPERATIVE INDICATIONS: Severe arthritis to the right knee with the valgus malalignment. The patient is [id number], he has been severely disabled. DESCRIPTION OF PROCEDURE: The patient was brought to the operating room and placed on the operating room table in the supine position, after the adductor canal block had been done in the holding area by Dr. Sharma. The general anesthetic was administered, endotracheal tube was inserted. A Joel catheter was inserted. The right proximal thigh was wrapped with a tourniquet. The right knee was noted to have a slight flexion contracture and the medial collateral ligament stable. The right leg was prepped from the tourniquet to the tips of the toes after it had been given a preliminary chlorhexidine prep. After prepping, draping and sealing off, we did our universal protocol time-out confirming Pankaj Vancise, and a plan for right total knee replacement, we all agreed and we proceeded. The surgical care was done with the patient supine Trendelenburg-type of position. The right foot was placed on a padded foot piece and the surgical care was done with hip and knee acutely flexed for most of the case. The tourniquet was not utilized until the clean up and cementing phase of the case. The skin incision went from the 2 fingerbreadths proximal to the superior pole of the patella to the medial aspect of the tibial tubercle. The skin and subcu were divided the prepatellar bursa was traversed. The prepatellar bursa had a scary tissue and extra strands of bursal tissue and these were excised on the course of the surgical care. The knee was entered medial parapatellar. The knee had clear straw colored synovial fluid. On the tibia, the anteromedial soft tissues were divided down to the bone going medially, we kept subperiosteally going around to the deep MCL and under the posteromedial corner of the knee. Going laterally, the patellar tendon was up lifted on its medial insertion slightly. The patella was made so that it could be everted. The remains of the anterior horn medial meniscus were carefully excised. The tibia was made so that could be subluxated forward from under the femur somewhat. The lateral femoral condyle had bone and cartilage loss. The lateral tibial plateau bone and cartilage loss was complete eburnation of bone and some scooping out of the lateral plateau more posteriorly. The ACL and PCL were carefully excised, they were uplifted from their femoral origins and once the PCL was uplifted and the tibia could be subluxated forward from under the femur and the PCL were carefully excised. Great care was taken while working posteriorly. The lateral meniscal anterior horn was excised, care was taken to achieve hemostasis and the periphery of the lateral meniscus in the region of the lateral geniculate. The distal anterior femur was exposed subperiosteally for referencing and measuring and peripatellar synovectomy was completed. The proximal tibial cut was made first. Our goal here was to have a tibial surface that would be perpendicular to the long axis to the tibia removing 5 to 6 mm medially and a little less laterally. We wanted this surface also to have a slight posterior slope. Next, a distal femoral cutting guide was applied after opening the femoral canal, we suctioned the femoral intramedullary to the discourage any tendency for embolization. The femoral cutting guide was applied with 6 degrees of valgus on 1 for this small flexion contracture of the right knee. The distal femoral cut was completed and the extension gap allowed nice fit of a 10-mm spacer block. The femur was measured for a size 6. The femur was finished anteriorly, posteriorly, and chamfering for size 6. We then finished removal of the posterior horn lateral meniscus, medial meniscus, and the PCL and the flexion gap was also very satisfactory with a 10-mm block. The femur was completed with the intercondylar cut outs and the tibia was then completed for a size E. The femoral canal was cleaned x6 with saline, suctioned empty, and bone plug was inserted. The knee was then assembled with a trial components on size E tibia, 10 articular surface and 6 femur with full knee extension, stable ligaments in extension and stable ligaments in 90 degrees of flexion. The patella was cut flat. A 32 was chosen, 3 drill holes were made and these were undercut. A lateral release was not necessary. The knee had nice range of movement with the patellar component placed full extension, flexion to almost heel buttock distance. The leg was exsanguinated. The tourniquet elevated to 275. The final components were then checked and opened. The knee was then cleaned in extension with pulsed saline irrigation. The knee was then flexed, retractors were put into position and all bony surfaces were cleaned with pulsed saline in flexion and all surfaces were cleaned, dried, and laps inserted for drying all the bony surfaces. The cement was mixed and the components were cemented into position, patella followed by tibia, followed by femur, each was impacted. Excess cement was removed and the knee was articulated and extended during the final hardening. The tourniquet was deflated. The pericapsular tissues were infiltrated with Marcaine 0.25% mixed with Xylocaine with epinephrine, 30 mL of this mixture and then careful hemostasis was achieved during closure and we irrigated several times with saline during closure of the quadriceps. Tendon reapproximated with interrupted #1 Vicryl sutures in [id number] fashion down to the medial retinaculum and then we used 0 Vicryl more distally. The deep bursa and subcu 0 Vicryl and then 3-0 Vicryl on the superficial subcu, and mary jo on the skin. Two drains were brought out through superolateral, suprapatellar pouch and the skin was closed with mary jo after washing and drying. We then covered with Betadine soaked release, sterile gauze, and the drains were dressed the same way, then sterile Webril, cryotherapy cuff, ABD pads, further Webril, and a 6-inch Ronny bandage loosely applied. The patient was returned to the recovery room in stable and satisfactory condition having tolerated the procedure very well. [id number]/[facility] #: [id number] [facility]OSPITALE[facility]
[2017-10-18] MEDS: Acetaminophen TAB* 325 MG PO SCH ×3 (06:02→20:05)
[2017-10-18] MEDS: Levothyroxine TAB* 50 MCG TAB PO SCH (06:03)
[2017-10-18] MEDS: oxyCODONE TAB* 5 MG TAB PO PRN ×2 (06:03→12:10)
[2017-10-18 06:07] LABS: Hematocrit 32 % (42-52); Hemoglobin 11.1 g/dl (14.0-18.0); Mean Platelet Volume 8.7 um3 (7.4-10.4); Platelet Count 173 10^3/ul (150-450)
[2017-10-18 06:25] LABS: EGFR Non-African American 85.8 (>60)
[2017-10-18] MEDS: Omeprazole CAP* 20 MG PO SCH (07:15)
--- NOTE | 2017-10-18 08:10 | PN ---
Progress Note - Progress Note Date of Service: 10/18/17 Note: POD #1 Awake, alert, cooperative, breathing easily. Xray post op right knee all satisfactory. Intake 3843, output 2250. 2 drains removed right knee, the dressing is dry. Right PT pulse is 2 plus. Ankle moving up and down actively. Exercises done right hip and knee. H/H 11.1/32%, lytes are normal, glucose 155. Imp: Stable. Pradaxa restarting. Acute blood loss anemia. Plans: Continue to mobilize with walker and exercises right knee and leg.
[2017-10-18] MEDS: Insulin LISPRO* 1 UNITS UNIT SUBCUT SCH ×4 (08:13→21:11)
[2017-10-18] MEDS: Magnesium Hydroxide LIQ* 30 ML UDC PO SCH ×2 (08:52→20:06)
[2017-10-18] MEDS: Amiodarone TAB* 200 MG PO SCH (08:52)
[2017-10-18] MEDS: Docusate CAP* 100 MG PO SCH ×2 (08:52→20:05)
[2017-10-18] MEDS ORDERED: amLODIPine TAB* 5 MG PO SCH ×2 (09:00→09:09)
[2017-10-18] MEDS ORDERED: Pneumococcal *Vac Polyvalent 0.5 ML VIAL IM ONE (09:00)
[2017-10-18] MEDS ORDERED: Glimepiride (NF) 2 MG TAB PO SCH (09:00)
[2017-10-18] MEDS ORDERED: Hydrochlorothiazide TAB* 25 MG PO SCH ×2 (09:00→09:09)
[2017-10-18] MEDS ORDERED: Metoprolol Succinate XL TAB* 50 MG PO SCH ×2 (09:00→09:09)
[2017-10-18] MEDS ORDERED: Valsartan TAB* 160 MG PO SCH ×2 (09:00→09:09)
--- NOTE | 2017-10-18 11:02 | PN ---
Subjective Date of Service: 10/18/17 Interval History: HOSPITALIST PROGRESS NOTE Patient seen and examined at bedside. Care reviewed and d/w Nicholas Chavira RN. He feels well today. Knee pain is controlled, was able to ambulate with PT. Had 1 episode of N/V last night, but this is now resolved, tolerating diet well. Denies chest pain, palpitations, or dyspnea. Family History: Unchanged from Admission Social History: Unchanged from Admission Past Medical History: Unchanged from Admission Objective Active Medications: Acetaminophen (Tylenol Tab*) 975 mg PO Q8H [facility] Last Admin: 10/18/17 06:02 Dose: 975 mg Amiodarone HCl (Cordarone Tab*) 200 mg PO QAM [facility] Last Admin: 10/18/17 08:52 Dose: 200 mg Amlodipine Besylate (Norvasc Tab*) 2.5 mg PO QAM [facility] Cyclobenzaprine HCl (Flexeril Tab*) 5 mg PO TID PRN PRN Reason: SPASMS Dabigatran (Pradaxa Cap(Nf)) 150 mg PO Q12H [facility] Dextrose (D50w Syringe 50 Ml*) 12.5 gm IV PUSH .FOR FS < 60 - SS PRN PRN Reason: FS < 60 Diphenhydramine HCl (Benadryl Iv*) 25 mg IV Q6H PRN PRN Reason: itching Diphenhydramine HCl (Benadryl Po*) 25 mg PO Q6H PRN PRN Reason: itching Docusate Sodium (Colace Cap*) 100 mg PO BID [facility] Last Admin: 10/18/17 08:52 Dose: 100 mg Hydrochlorothiazide (Hydrodiuril Tab*) 12.5 mg PO DAILY [facility] Lactated Ringer's (Lactated Ringers 1000 Ml Bag*) 1,000 mls @ 100 mls/hr IV PER RATE [facility] Last Admin: 10/18/17 01:39 Dose: 100 mls/hr Insulin Human Lispro (Humalog*) 0 units SUBCUT ACHS [facility]; Protocol Last Admin: 10/18/17 08:13 Dose: 1 unit Levothyroxine Sodium (Synthroid Tab*) 50 mcg PO DAILY@0600 [facility] Last Admin: 10/18/17 06:03 Dose: 50 mcg Magnesium Hydroxide (Milk Of Magnesia Liq*) 30 ml PO BID [facility] Last Admin: 10/18/17 08:52 Dose: 30 ml Magnesium Hydroxide (Milk Of Magnesia Liq*) 30 ml PO Q6H PRN PRN Reason: constipation Metoprolol Succinate (Toprol Xl Tab*) 50 mg PO QAM [facility] Morphine Sulfate (Morphine Inj ((Syringe))*) 2 mg IV Q2H PRN PRN Reason: PAIN - BREAKTHROUGH Morphine Sulfate (Morphine Vial*) 4 mg IV Q2H PRN PRN Reason: PAIN - UNRELIEVED Omeprazole (Prilosec Cap*) 40 mg PO DAILY@0730 [facility] Last Admin: 10/18/17 07:15 Dose: 40 mg Ondansetron HCl (Zofran Inj*) 4 mg IV Q6H PRN PRN Reason: nausea Ondansetron HCl (Zofran Odt Tab*) 4 mg PO Q6H PRN PRN Reason: NAUSEA Last Admin: 10/17/17 23:44 Dose: 4 mg Oxycodone HCl (Roxycodone Tab*) 10 mg PO Q4H PRN PRN Reason: PAIN - SEVERE Last Admin: 10/18/17 06:03 Dose: 10 mg Tramadol HCl (Ultram*) 50 mg PO Q6H PRN PRN Reason: PAIN - MODERATE Valsartan (Diovan Tab*) [facility] Vital Signs - 8 hr 10/18/17 10/18/17 10/18/17 03:24 06:03 07:34 Temperature 98.6 F 98.3 F Pulse Rate 61 62 Respiratory 16 16 17 Rate Blood Pressure 133/71 116/55 (mmHg) O2 Sat by Pulse 97 100 Oximetry 10/18/17 10/18/17 10/18/17 08:00 08:49 08:56 Temperature Pulse Rate 60 Respiratory 16 18 Rate Blood Pressure 109/47 (mmHg) O2 Sat by Pulse 100 Oximetry Oxygen Devices in Use Now: None Appearance: Pleasant gentleman sitting up in a chair in NAD. Eyes: No Scleral Icterus Ears/Nose/Mouth/Throat: Mucous Membranes Moist Neck: Trachea Midline Respiratory: Symmetrical Chest Expansion and Respiratory Effort, Clear to Auscultation Cardiovascular: RRR - Normal S1 and S2 Extremities: - - CD to righ knee, good capillary refill, sensation intact. Right shoulder deformity with old surgical scar Neurological: Alert and Oriented x 3, NL Muscle Strength and Tone Result Diagrams: 10/18/17 05:57 10/18/17 05:57 Assess/Plan/Problems-Billing Assessment: Mr Catsaneda is a 77yo M with PMH of HTN, type 2 DM, GERD, Afib, s/p pacer, hypothyroidism, COPD, GERD, CTS, admitted for elective right TKA. - Patient Problems (1) Status post total right knee replacement Comment: - Management as per Ortho. (2) Type 2 diabetes mellitus Comment: - Resume glimepiride and continue Lispro SS. (3) HTN (hypertension) Comment: - BP on the lower side - continue Amlodipine and hold Valsartan/HCTZ for now. (4) Afib Comment: - Continue Amiodarone and resume Pradaxa. (5) DVT prophylaxis Comment: - Pradaxa. (6) Full code status Status and Disposition: Inpatient. Hospitalist service will continue to follow.
[2017-10-18] MEDS: CMC:Glimepiride (NF) 2 MG TAB PO SCH (12:09)
[2017-10-18] MEDS: CMCS: Dabigatran CAP(NF) 150 MG CAP PO SCH ×2 (12:09→23:54)
[2017-10-19] MEDS: Levothyroxine TAB* 50 MCG TAB PO SCH (05:27)
[2017-10-19] MEDS: Acetaminophen TAB* 325 MG PO SCH (05:28)
[2017-10-19 05:48] LABS: Hematocrit 29 % (42-52); Hemoglobin 10.1 g/dl (14.0-18.0); Mean Platelet Volume 9.1 um3 (7.4-10.4); Platelet Count 150 10^3/ul (150-450)
[2017-10-19] MEDS: Insulin LISPRO* 1 UNITS UNIT SUBCUT SCH (07:39)
[2017-10-19 07:40] VITALS: BP 154/76
[2017-10-19] MEDS: Omeprazole CAP* 20 MG PO SCH (07:43)
--- NOTE | 2017-10-19 08:16 | PN ---
Progress Note - Progress Note Date of Service: 10/19/17 Note: POD #2 Awake , alert, breathing easily. He is OOB to chair and not too distressed with the right knee. Hct is 29%. Temp 98.7. He can actively extend and flex the right knee and minimal swelling of the right ankle. Stable. OK for discharge if he remains stable and he can have a dressing change prior to going home.
[2017-10-19] MEDS: Amiodarone TAB* 200 MG PO SCH (08:37)
[2017-10-19] MEDS: Docusate CAP* 100 MG PO SCH (08:37)
[2017-10-19] MEDS: Magnesium Hydroxide LIQ* 30 ML UDC PO SCH (08:40)
[2017-10-19] MEDS ORDERED: Valsartan TAB* 160 MG PO SCH (09:00)
[2017-10-19] MEDS: CMC:Glimepiride (NF) 2 MG TAB PO SCH (09:30)
[2017-10-19] MEDS: CMCS: Dabigatran CAP(NF) 150 MG CAP PO SCH (11:13)
--- NOTE | 2017-10-20 02:24 | DS ---
DISCHARGE SUMMARY: DATE OF ADMISSION: 10/17/17 DATE OF DISCHARGE: 10/19/17 PROVIDER: Dr. Santiago Gandara.* (DICTATED BY TOMAS BORGES) PROCESS DEVELOPMENT CHEMIST: TOMAS Rodas PREOPERATIVE DIAGNOSIS: Severe arthritis of the right knee especially in the lateral compartment with valgus malalignment, [id number]. OPERATIVE PROCEDURE: Right total knee replacement. HISTORY: Mr. Castaneda is a 77-year-old male with years of increasingly severe right knee pain. He failed conservative management and elected to undergo a right total knee arthroplasty. HOSPITAL COURSE: The patient was admitted to [facility] on . He underwent a right total knee arthroplasty without complication. Postop day 1, he was well appearing, in no acute distress. His dressing was clean, dry , and intact. He was able to dorsiflex and plantarflex the ankle. He was also seen by our hospitalist service during his stay due to low blood pressure. His amlodipine was continued, though his losartan and hydrochlorothiazide were held. Postop day 2, the patient is well appearing, in no acute distress. His dressing was changed. Incision clean, dry, and intact without any erythema surrounding. Dorsiflexion and plantarflexion intact. Thigh was soft. Sensation intact distally. DP pulse 2+. Laboratory studies: Hemoglobin 10.1, hematocrit 29. Vital Signs: Temperature 98.3, pulse rate 66, respiratory rate 16, oxygen saturation 97%, blood pressure 164/76. DISCHARGE MEDICATIONS: 1. Valsartan/hydrochlorothiazide 160/12.5 one tab p.o. q.a.m. 2. Amiodarone 200 mg p.o. q.a.m. 3. Amlodipine 2.5 mg p.o. q.a.m. 4. Omeprazole 40 mg p.o. q.a.m. 5. Metoprolol succinate 50 mg p.o. q.a.m. 6. Pradaxa 150 mg p.o. b.i.d. 7. Acetaminophen 975 mg p.o. q.8 hours p.r.n., max daily dose 4000 mg from all sources. 8. Oxycodone 5 mg p.o. q.4 hours p.r.n., max daily dose of 4. 9. Tramadol 50 mg p.o. q.6 hours p.r.n., max daily dose of 8. 10. Docusate 100 mg p.o. b.i.d. p.r.n. constipation. 11. Levothyroxine 50 mcg p.o. q.a.m. 12. Glimepiride 1 mg p.o. q.a.m. DISCHARGE PLAN: The patient will be weightbearing as tolerated. He may begin showering. He will be on Pradaxa 150 mg by mouth every 12 hours as he has taken at home in the past. Pain control: Tramadol 50 mg 1 to 2 tabs every 4 to 6 hours as needed for pain , max daily dose of 8; oxycodone 5 mg 1 tab by mouth every 4 hours as needed for breakthrough pain, max of 4 per day. Follow up with Dr. Gandara in 4 to 6 weeks, sooner with any concerns. TOMAS BORGES [id number]/[facility] #: [id number] MTDD
== END 2017-10-19 11:27 | disposition home health service (06) | DRG 470 ==
LOC: AA 07:16 → SSU 14:40
PROVIDERS: ADMIT Orthopaedic Surgery; ATTEND Internal Medicine
PROC: 0SRC0J9 Replacement of Right Knee Joint with Synthetic Substitute, Cemented, Open Approach (ICD-10-PCS; principal; 2017-10-17 08:45)
DX: M17.11 Unilateral primary osteoarthritis, right knee (principal); D62 Acute posthemorrhagic anemia; E03.9 Hypothyroidism, unspecified; I48.2 Chronic atrial fibrillation; E11.9 Type 2 diabetes mellitus without complications; K21.9 Gastro-esophageal reflux disease without esophagitis; G56.03 Carpal tunnel syndrome, bilateral upper limbs; J44.9 Chronic obstructive pulmonary disease, unspecified; M21.061 Valgus deformity, not elsewhere classified, right knee; R03.1 Nonspecific low blood-pressure reading; R11.2 Nausea with vomiting, unspecified; I10 Essential (primary) hypertension; Z95.0 Presence of cardiac pacemaker; Z88.0 Allergy status to penicillin; Z88.8 Allergy status to other drugs, medicaments and biological substances; Z83.3 Family history of diabetes mellitus; Z82.49 Family history of ischemic heart disease and other diseases of the circulatory system; Z82.3 Family history of stroke; Z98.42 Cataract extraction status, left eye; Z98.41 Cataract extraction status, right eye; Z85.46 Personal history of malignant neoplasm of prostate; Z80.9 Family history of malignant neoplasm, unspecified; Z90.79 Acquired absence of other genital organ(s); Z82.5 Family history of asthma and other chronic lower respiratory diseases; Z23 Encounter for immunization; Z79.84 Long term (current) use of oral hypoglycemic drugs; Z79.01 Long term (current) use of anticoagulants
CPT/HCPCS: 36415; 80048; 85014; 85018; 85049; 88305; 88311; 90686; A9270-GY; C1776; G8978-GP-CI; G8978-GP-CJ; G8978-GP-CL; G8979-GP-CI; G8980-GP-CI; G8987-GO-CJ; G8988-GO-CI; J1100; J1885; J2250; J2704; J2795; J3010; J3490

== ENCOUNTER 2019-08-26 08:57 | Inpatient (IN) ==
[~2019-08-26 08:57] MED LIST changes: -Acetaminophen TAB* 325 MG PO ONE; -Buffered Lidocaine 0.9% SYRIN* 5 ML/SYR SYRINGE INTRADERM ONE; +Buffered Lidocaine 1% SYRIN 1 ml INTRADERM ONE; +Lactated Ringers 1000 ml BAG 1,000 ML IV SCH; -Tranexamic Acid 1,000 MG in NS 0.9% 50 ML* (outpatient use) IV SCH
[2019-08-26] MEDS ORDERED: Clindamycin 900 MG/D5W BAG 900 MG/50 ML BAG IVPB ONE (09:15)
[2019-08-26] MEDS ORDERED: Buffered Lidocaine 1% SYRIN 1 ml INTRADERM ONE (09:16)
[2019-08-26] MEDS ORDERED: fentaNYL 250 mcg/5 ml 50 MCG/ML 5 ml VIAL (250 MCG) ONE (09:23)
[2019-08-26] MEDS ORDERED: ceFAZolin 2 GM PREMIX 2 GM/50 ML BAG ONE (09:44)
[2019-08-26] MEDS ORDERED: ROPIVACAINE 5 MG/ML 30 ML BTL (0.5%) ONE (10:32)
[2019-08-26] MEDS ORDERED: Lidocaine 2% PF 5 ML VIAL ONE (10:32)
[2019-08-26] MEDS ORDERED: HYDROmorphone 1 MG/1 ML SYRINGE IV PRN (11:54)
[2019-08-26] MEDS ORDERED: Naloxone 0.4 mg VIAL 0.4 mg/ml 1 ml VIAL IV PRN (11:54)
[2019-08-26] MEDS ORDERED: Ondansetron 4 mg VIAL 2 MG/ML 2 ml VIAL IV PRN ×2 (11:54→13:49)
[2019-08-26] MEDS ORDERED: fentaNYL 100 mcg/2 ml 50 MCG/ML VIAL IV PRN (11:54)
[2019-08-26] MEDS ORDERED: Rocuronium 50 mg VIAL 10 mg/ml 5 ml VIAL (50 mg) ONE (12:15)
[2019-08-26] MEDS ORDERED: Vancomycin 1,000 MG VIAL ONE (12:30)
[2019-08-26] MEDS ORDERED: Magnesium Hydroxide LIQ 30 ML UDC PO PRN (13:49)
[2019-08-26] MEDS ORDERED: Morphine 2 MG/ML SYRINGE IV PRN (13:49)
[2019-08-26] MEDS ORDERED: Lactulose 30 ml UDC PO PRN (13:49)
[2019-08-26] MEDS ORDERED: Ondansetron ODT 4 mg TAB 4 MG TAB PO PRN (13:49)
[2019-08-26] MEDS ORDERED: diPHENhydraMINE 25 mg TAB PO PRN (13:49)
[2019-08-26] MEDS ORDERED: diPHENhydraMINE IV 50 MG/ML 1 ml VIAL (BENADRYL) IV PRN (13:49)
[2019-08-26] MEDS ORDERED: Dextrose 50% Syringe 50 ml 25 GM/50 ML SYRINGE IV PUSH PRN (14:06)
[2019-08-26] MEDS: D5W 1/2 NS 1000 ml BAG 1,000 ML IV SCH (15:50)
[2019-08-26] MEDS: ceFAZolin 1 GM ADVAN 1 GM in NS 0.9% 50 ML 50 ML IVPB SCH (19:51)
[2019-08-26] MEDS: Magnesium Hydroxide LIQ 30 ML UDC PO SCH ×2 (20:55→21:07)
[2019-08-27] MEDS: D5W 1/2 NS 1000 ml BAG 1,000 ML IV SCH (02:17)
[2019-08-27] MEDS: ceFAZolin 1 GM ADVAN 1 GM in NS 0.9% 50 ML 50 ML IVPB SCH ×2 (03:45→11:56)
[2019-08-27 05:54] LABS: Hematocrit 28 % (42-52); Hemoglobin 9.4 g/dL (14.0-18.0); Mean Platelet Volume 9.6 fL (7.4-10.4); Platelet Count 120 10^3/uL (150-450)
[2019-08-27] MEDS ORDERED: NS 0.9% 500 ml BAG 500 ML IV SCH (07:00)
[2019-08-27 07:53] LABS: BUN/Creatinine Ratio 24.3 (8-20); Calcium 8.2 mg/dL (8.6-10.3); EGFR African American 122.8 (>60); EGFR Non-African American 101.5 (>60)
[2019-08-27] MEDS: Magnesium Hydroxide LIQ 30 ML UDC PO SCH (08:29)
[2019-08-27] MEDS ORDERED: CMC:Dabigatran 150 mg CAP (NF) PO SCH (09:00)
[2019-08-27] MEDS ORDERED: Vitamin THERAPEUTIC TAB PO SCH (09:00)
[2019-08-27 11:29] VITALS: BP 126/61
== END 2019-08-27 13:40 | disposition home or self-care (01) | DRG 464 ==
LOC: AA 08:57 → EDSTATUS 10:30 → SSU 13:49
PROVIDERS: ADMIT Orthopaedic Surgery; ATTEND Orthopaedic Surgery